=== PATIENT | female | born 1985 | race Caucasian/White ===

== ENCOUNTER 2016-12-08 21:49 | Emergency (ER) | payer MEDICAID ==
[~2016-12-08] VITALS: Ht 160 cm; Wt 90.7 kg
[2016-12-08 23:04] LABS: Urine Bilirubin Negative (Negative); Urine Color Yellow (Yellow); Urine Glucose Normal (Normal); Urine Ketone Negative (Negative); Urine Nitrite Negative (Negative); Urine RBC 6 /hpf (0 - 4); Urine Squamous Epithelial Cell FEW /hpf (<5); Urine Urobilinogen Normal (Negative)
[2016-12-08 23:06] LABS: Urine Blood 2+ /uL (Negative)
[2016-12-09 00:30] VITALS: BP 133/82
[2016-12-09] MEDS: CYCLOBENZAPRINE HCL 10 MG TAB PO ONE (00:39)
== END 2016-12-09 00:40 | disposition home or self-care (01) ==
LOC: ER 21:58
DX: S46.919A Strain of unspecified muscle, fascia and tendon at shoulder and upper arm level, unspecified arm, initial encounter (principal); F17.210 Nicotine dependence, cigarettes, uncomplicated; X58.XXXA Exposure to other specified factors, initial encounter; Y93.89 Activity, other specified; Y99.8 Other external cause status; Y92.89 Other specified places as the place of occurrence of the external cause
CPT/HCPCS: 81001

== ENCOUNTER 2017-09-10 12:09 | Emergency (ER) | payer MEDICAID ==
[~2017-09-10] VITALS: Ht 160 cm; Wt 88.5 kg
[2017-09-10 12:18] VITALS: BP 135/82
[2017-09-10 12:59] LABS: Urine Bilirubin Negative (Negative); Urine Blood 2+ /uL (Negative); Urine Color Yellow (Yellow); Urine Glucose Normal (Normal); Urine Ketone Negative (Negative); Urine Mucus FEW (None Seen); Urine Nitrite POSITIVE (Negative); Urine RBC 3 /hpf (0 - 4); Urine Squamous Epithelial Cell FEW /hpf (<5); Urine Urobilinogen Normal (Negative); Urine pH 5.5 (5.0-8.0)
[2017-09-10] MEDS ORDERED: KETOROLAC TROMETH 60MG/2ML VIAL IM ONE (13:30)
== END 2017-09-10 14:10 | disposition home or self-care (01) ==
LOC: ER 12:09
DX: N39.0 Urinary tract infection, site not specified (principal); F17.210 Nicotine dependence, cigarettes, uncomplicated
CPT/HCPCS: 81001; 81025; 96372; 99284; J1885

== ENCOUNTER 2017-10-18 23:18 | Emergency (ER) | payer MEDICAID ==
[~2017-10-18] VITALS: Ht 160 cm; Wt 90.7 kg
[2017-10-18 23:46] VITALS: BP 138/74
[2017-10-19 01:05] LABS: Basophils # (auto) 0.1 uL; Hemoglobin 10.9 g/dL (12.2-16.2); Monocytes # (auto) 0.5 uL; Red Cell Distribution Width 15.3 % (11.8-14.3)
[2017-10-19 01:07] LABS: Basophils % (auto) 1.5 % (0.0-2.0); Eosinophils # (auto) 0.1 uL; Eosinophils % (auto) 0.8 % (0.0-7.0); Hematocrit 34.6 % (36.0-46.0); Lymphocytes % (auto) 28.9 % (10.0-50.0); Mean Corpuscular Hemoglobin 23.7 pg (28.0-32.0); Mean Corpuscular Hgb Conc. 31.5 g/dL (32.0-36.0); Mean Corpuscular Volume 75.1 fL (80.0-100.0); Mean Platelet Volume 9.7 fL (6.9-10.8); Neutrophils # (auto) 4.3 uL; Neutrophils % (auto) 61.8 % (37.0-80.0); Nucleated Red Blood Cells % 0.1 %; Platelet Count (auto) 261 10^3/uL (140-450); White Blood Cell 6.9 10^3/uL (4.4-10.8)
[2017-10-19 01:22] LABS: Urine Bilirubin Negative (Negative); Urine Blood Negative /uL (Negative); Urine Color Yellow (Yellow); Urine Glucose Normal (Normal); Urine Ketone 2+ (Negative); Urine Mucus FEW (None Seen); Urine Nitrite Negative (Negative); Urine RBC <1 /hpf (0 - 4); Urine Squamous Epithelial Cell FEW /hpf (<5); Urine Urobilinogen Normal (Negative); Urine pH 7.5 (5.0-8.0)
[2017-10-19 01:25] LABS: Albumin 3.8 g/dL (3.4-5.0); BUN/Creatinine Ratio 9.5; Calcium 8.8 mg/dL (8.5-10.1); Potassium 3.5 mmol/L (3.5-5.1)
[2017-10-19 01:27] LABS: Bilirubin, Total 0.5 mg/dL (0.2-1.0); Total Protein 7.6 g/dL (6.4-8.2)
== END 2017-10-19 03:09 | disposition left against medical advice (07) ==
LOC: ER 23:19
DX: R10.9 Unspecified abdominal pain (principal); Z53.21 Procedure and treatment not carried out due to patient leaving prior to being seen by health care provider
CPT/HCPCS: 36415; 80053; 81001; 82150; 83690; 84702; 85025